=== PATIENT | female | born 1970 | race Caucasian/White ===

== ENCOUNTER 2019-06-04 08:26 | Outpatient (CLI) | payer OTHER, SELFPAY | END 2019-06-04 08:27 | disposition home or self-care (01) | LOC: ANHAUDIO 08:30 | DX: H91.90 Unspecified hearing loss, unspecified ear (principal); H81.10 Benign paroxysmal vertigo, unspecified ear | CPT/HCPCS: 92537; 92540; 92546; 92557; 92567 ==

== ENCOUNTER 2019-07-10 16:30 | Outpatient (RCR) | payer OTHER, SELFPAY ==
--- NOTE | 2019-06-10 16:53 | PTOPEVAL ---
PHYSICAL THERAPY EVALUATION AND PLAN OF CARE 06-10-2019 The PT evaluation was completed for the diagnosis of BPPV. The plan of treatment is for 2x/week for 4 weeks. Thank you for referring Lizette to [facility]. Please review, sign, date and return this plan of care [facility]. I agree with and certify that the following plan of care is medically necessary. Referring Physician Date Attending Provider: Dr. Hillman *PT Outpatient Evaluation Start: 06/10/19 15:47 Freq: Status: Active Protocol: Document 06/10/19 15:47 DANIELLE (Rec: 06/10/19 16:53 DANIELLE [email or web address]) Therapy Assessment Status Assessment Status Assessment Status Evaluation Outpatient Past Medical History Neurological History Hx Neurological Disorders No Significant History Cardiovascular History Hx Hypertension Yes: meds Respiratory History Hx Asthma Yes: weather related/inhaler use Gastrointestinal History Hx Gastrointestinal Disorders No Significant History Genitourinary History Hx Genitourinary Disorders No Significant History Musculoskeletal History Hx Back Pain Yes Hx Other Musculoskeletal Disorders Yes: L hip cyst due to fall, non surgical; Hematological History Hx Hematological Disorders No Significant History Endocrine History Hx Hypothyroidism Yes: surgical removal- take meds HEENT History Hx Other HEENT Disorders Yes: have had vertigo for the past 2 weeks;saw ENT Integumentary History Hx Skin Disorders No Significant History Other History Hx MRSA Yes: R leg 2005; surgical Hx Other Medical Conditions Yes: obesity Evaluation Information Problem Diagnosis BPPV Onset May 11, 2019 to ER Subjective Information working on school bus, sneezed Query Text:As Reported By Patient/ hard, then leaned forward to Family unbuckle w/c, L ear popped and vomiting; when in ER, some word finding problems; not able to walk off bus due to so dizzy Prior Level of Function Activity Level (Last 3 Months) Occupation elementary school science teacher; 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
--- NOTE | 2019-07-10 15:43 | PTOPEVAL ---
PHYSICAL THERAPY DISCHARGE 07-10-2019 Lizette has received 9 Physical Therapy sessions, from June 10 to today, for the diagnosis of BPPV. Her treatment included eye tracking exercises, therapeutic activities for vestibular system, Eply maneuver to the R and education for home exercises and safety. Compared to the initial evaluation, she has improved with the Dizziness Handicap Index score from 60 to 40; her s/s are less severe, and she continues to have sinus pressure and headaches. The recovery time is less with her s/s. Her activities and movements are guarded and she knows how to stabilize her s/s. The goals were partially achieved, education has been completed. She is having back surgery next week, therefore she will be discharged at this time. Thank you for referring Mrs. Bee to [facility]. Please review, sign, date and return this discharge [facility]. I agree with and certify that the following plan of care is medically necessary. Referring Physician Date Attending Provider: Dr. Elliott Hillman Document 07/10/19 15:10 DANIELLE (Rec: 07/10/19 15:40 DANIELLE [email or web address]) Subjective Information Lizette reports: pressure behind Query Text:As Reported By Patient/ eyes and ears--sinus pressure Family ; whole face feels it; no dizziness or head spinning at this time; when woke up this morning- was really dizzy for 20 minutes; self assessment Dizziness Handicap Index 40. To have back surgery next week ; Pain Assessment Timing of Pain Assessment Timing of Pain Assessment Assessment Pain Scale Pain Scale Used Numeric (1 - 10) Self Report Pain Assessment Bilateral Neck Reported Pain Level 0 Pain Frequency Chronic Other Pain Description headaches last 30-45 min, last until sit down, calm down and rest Current Pain Intensity 0 Lowest Pain Intensity 0 Greatest Pain Intensity 6 Additional Pain Comments no pain in neck today; have headaches when move too fast or do too much Pain Score Pain Score 0: Self Report PT Clinical Summary Clinical Summary Protocol: PTEVCODE Clinical Summary Vestibular testing/activity: standing head turn to R and L: little off and pressure in sinus ; pick something up off floor:holds head upright to avoid s/s, if look to ground, increase s/s; stand and turn 360' to R clear 3 sec/ to L clear 5 seconds; walk 50'
== END 2019-07-13 09:49 | disposition home or self-care (01) ==
LOC: ANHPT 16:30
DX: H81.11 Benign paroxysmal vertigo, right ear (principal)
CPT/HCPCS: 97110; 97161

== ENCOUNTER 2019-07-14 13:30 | Outpatient (RCR) | payer OTHER, SELFPAY ==
--- NOTE | 2019-05-21 11:52 | PTOPEVAL ---
Thank you for referring this patient to [facility]. Please review, sign, date and return this plan of care [facility]. I agree with and certify that the following plan of care is medically necessary. Referring Physician Date Admitting Provider: Attending Provider: PHYSICIAN NOT ON STAFF Referring Provider: *PT Outpatient Evaluation Start: 05/21/19 09:11 Freq: Status: Active Protocol: Document 05/21/19 09:05 DANIELLE (Rec: 05/21/19 10:05 DANIELLE [email or web address]) Therapy Assessment Status Assessment Status Assessment Status Evaluation Outpatient Past Medical History Neurological History Hx Neurological Disorders No Significant History Cardiovascular History Hx Hypertension Yes: meds Respiratory History Hx Asthma Yes: weather related/inhaler use Gastrointestinal History Hx Gastrointestinal Disorders No Significant History Genitourinary History Hx Genitourinary Disorders No Significant History Musculoskeletal History Hx Back Pain Yes Hx Other Musculoskeletal Disorders Yes: L hip cyst due to fall, non surgical; Hematological History Hx Hematological Disorders No Significant History Endocrine History Hx Hypothyroidism Yes: surgical removal- take meds HEENT History Hx Other HEENT Disorders Yes: have had vertigo for the past 2 weeks;saw ENT Integumentary History Hx Skin Disorders No Significant History Other History Hx MRSA Yes: R leg 2005; surgical Hx Other Medical Conditions Yes: obesity Evaluation Information Problem Diagnosis back pain Onset 4 years Subjective Information chronic low back pain; saw Dr Query Text:As Reported By Patient/ Hernandez- surgery is being planned Family for cage in low back and disc removal ; have to have therapy before surgery for insurance; have had injections in back and hips; no PT for back; Diagnostic Tests X-Rays For This Problem Yes MRI For This Problem Yes Previous Treatments Previous Treatments For This Problem no previous PT treatment for back pain Prior Level of Function Activity Level (Last 3 Months) Occupation business process coordinator; 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
--- NOTE | 2019-05-21 11:54 | PTOPEVAL ---
PHYSICAL THERAPY EVALUATION AND PLAN OF CARE 05-21-2019 The PT evaluation was completed for the diagnosis of low back pain. The plan of treatment is scheduled for 2x/week for 4 weeks. The plan includes aquatic therapy, for the buoyancy effects of the water, to ease her mobility and strengthening. Thank you for referring Mrs. Bee to [facility]. Please review, sign, date and return this plan of care [facility]. I agree with and certify that the following plan of care is medically necessary. Referring Physician Date Attending Provider: Dr. Hernandez *PT Outpatient Evaluation Start: 05/21/19 09:11 Document 05/21/19 09:05 DANIELLE (Rec: 05/21/19 10:05 DANIELLE [email or web address]) Outpatient Past Medical History Neurological History Hx Neurological Disorders No Significant History Cardiovascular History Hx Hypertension Yes: meds Respiratory History Hx Asthma Yes: weather related/inhaler use Gastrointestinal History Hx Gastrointestinal Disorders No Significant History Genitourinary History Hx Genitourinary Disorders No Significant History Musculoskeletal History Hx Back Pain Yes Hx Other Musculoskeletal Disorders Yes: L hip cyst due to fall, non surgical; Hematological History Hx Hematological Disorders No Significant History Endocrine History Hx Hypothyroidism Yes: surgical removal- take meds HEENT History Hx Other HEENT Disorders Yes: have had vertigo for the past 2 weeks;saw ENT Integumentary History Hx Skin Disorders No Significant History Other History Hx MRSA Yes: R leg 2006; surgical Hx Other Medical Conditions Yes: obesity Evaluation Information Problem Diagnosis back pain Onset 4 years Subjective Information chronic low back pain; saw Query Text:As Reported By Patient/ David- surgery is being planned Family for cage in low back and disc removal ; have to have therapy before surgery for insurance; have had injections in back and hips; no PT for back; Diagnostic Tests X-Rays For This Problem Yes MRI For This Problem Yes Previous Treatments Previous Treatments For This Problem no previous PT treatment for back pain Prior Level of Function Activity Level (Last 3 Months) Occupation channel business manager; 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
--- NOTE | 2019-06-10 08:50 | PCPTNOTE ---
Treatment note 06/01/2019 S: Pt reports that she is nervous about the water therapy O: Aquatic therapy; - Marching, abduction, extension, squats, heel raises, rotation with board, push/pull with board, walking forward,backwards, and lateral 5 minutes each direction. Activities performed in chest deep water. rest breaks given as needed. A: Pt tolerated treatment well with some fatigue noted P: continue with POC
--- NOTE | 2019-07-01 11:37 | PTOPEVAL ---
Addendum entered by Batsheva Cardoso, PT 07/01/19 11:47: Self assessment with the Oswestry Low Back Pain questionnaire is 70% limitation; at evaluation it was 62% limitation. Original Note: PHYSICAL THERAPY RE-EVALUATION AND UPDATED PLAN OF CARE 07-01-2019 Mrs. Bee has received 9 Physical Therapy sessions from May 21 to today, for the diagnosis of low back pain. Compared to the initial evaluation: pain rating is slightly worse; reported standing, walking and sleeping tolerances are less; flexibility is about the same and strength has improved and the pool helps to decrease her pain. In preparation for surgery, she reports she is decreasing her pain meds, and reports she is to have surgery in 2 weeks. Continue PT 2x/wk for 2 weeks, for pain control/ management and increase strength, prior to surgery. Thank you for referring Lizette to [facility]. Please review, sign, date and return this plan of care [facility]. I agree with and certify that the following plan of care is medically necessary. Referring Physician Date Attending Provider: Dr. Mckayla Hernandez *PT Outpatient Re-Evaluation Document 07/01/19 11:07 DANIELLE (Rec: 07/01/19 11:36 DANIELLE [email or web address]) Subjective Information Lizette reports: surgery is Query Text:As Reported By Patient/ planned for July 14; pool Family therapy helps decrease the pain; electrical stim and heat also helped pain; have been doing stretching exercises; said to continue PT until surgery; continues to have issues with dizziness/vertigo; Pain Assessment Timing of Pain Assessment Timing of Pain Assessment Assessment Pain Scale Pain Scale Used Numeric (1 - 10) Self Report Pain Assessment Bilateral Back Reported Pain Level 8 Radicular Pain Location R and L low back, buttocks, post leg to toes- intermittent due to position Pain Frequency Chronic,Intermittent Other Pain Description hit with sledgehammer,hurts, constant pain Current Pain Intensity 8 Lowest Pain Intensity 8 Greatest Pain Intensity 10 Pain Aggravating Factors Exercise/Activity Pain Behaviors Anxious,Grimacing,Guarding Pain Relief Interventions Used By Inactivity/Rest,Medication, Patient Position Change Other Alleviating Interventions stopped taking naproxen; took 1 pain pill this AM- taking less prep for sheba Additional Pain Comments report sleep 1 hr/time;stand abad 8-10 min;walking 1-2 blocks; Pain Score Pain Score 8: Self Report Cervical and Lumbar ROM Lumbar ROM Lumbar Comments
--- NOTE | 2019-07-17 15:17 | PCPTNOTE ---
PHYSICAL THERAPY DISCHARGE 07-17-2019 Attending Provider: Dr. Mckayla Hernandez Patient:Lizette Bee Date of :1970 Mrs. Bee has received 11 Physical Therapy sessions, from May 21 to July 14, for the diagnosis of back pain. She was scheduled to have back surgery on July 15, therefore will be discharged from therapy at this time. The goals were not achieved. Thank you for referring Lizette to [facility]. Please review, sign, date and return this discharge summary [facility]. I have been updated about the patient's current status and I agree with discharge from the above service at this time. Referring Physician Date
== END 2019-07-20 08:30 | disposition home or self-care (01) ==
LOC: ANHPT 13:30
DX: M54.5 Low back pain (principal)
CPT/HCPCS: 97012; 97014; 97110; 97113; 97161; G0283

== ENCOUNTER 2019-11-25 12:30 | Outpatient (RCR) | payer OTHER, SELFPAY ==
--- NOTE | 2019-08-31 09:14 | PTOPEVAL ---
PHYSICAL THERAPY EVALUATION AND PLAN OF CARE 08-31-2019 The PT evaluation was performed today for the diagnosis of low back pain, s/p lumbar fusion. Her plan of treatment is 2x/week for 5 weeks. The plan of care includes aquatic therapy, for the buoyancy effects of the water, to ease motion and ability to perform exercises with less pressure on her spine. Thank you for referring Lizette Bee to [facility]. Please review, sign, date and return this plan of care [facility]. I agree with and certify that the following plan of care is medically necessary. Referring Physician Date Referring Provider: Dr. Ramy Parry *PT Outpatient Evaluation Start: 08/31/19 08:02 Assessment Status Assessment Status Evaluation Outpatient Past Medical History Past Medical History Source of Past Medical History Patient Neurological History Hx Neurological Disorders No Significant History Cardiovascular History Hx Hypertension Yes: meds Respiratory History Hx Asthma Yes: weather related/inhaler use Gastrointestinal History Hx Gastrointestinal Disorders No Significant History Genitourinary History Hx Genitourinary Disorders No Significant History Musculoskeletal History Hx Arthritis Yes: B knee pain, get injections about every 3 wk- not had lately Hx Back Pain Yes Hx Orthopedic Surgery Yes: this back surgery Hx Other Musculoskeletal Disorders Yes: L hip cyst due to fall, non surgical;obese;LE edema Hematological History Hx Hematological Disorders No Significant History Endocrine History Hx Hypothyroidism Yes: surgical removal- take meds HEENT History Hx Other HEENT Disorders Yes: vertigo-have had therapy treatment in past Integumentary History Hx Skin Disorders No Significant History Other History Hx MRSA Yes: R leg 2005; surgical/MRSA Hx Other Medical Conditions Yes: obesity Evaluation Information Problem Diagnosis back pain, s/p L4-5 fusion Onset 07-15-2019 Subjective Information since surgery, no lifting over Query Text:As Reported By Patient/ 5#, home and resting; Family Previous Treatments Previous Treatments For This Problem had PT prior to back surgery Prior Level of Function Activity Level (Last 3 Months) Occupation business and financial counsel, 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
--- NOTE | 2019-10-02 13:18 | PTOPEVAL ---
PHYSICAL THERAPY RE-EVALUATION AND UPDATED PLAN OF CARE 10-02-2019 Lizette has received 9 PT sessions, from August 31 to today, s/p lumbar surgery. Compared to the initial evaluation: her pain rating is worse; now has radicular pain into both legs; reported sitting tolerance is improved; strength of B hips and trunk have improved; walking tolerance with the 6 minute walking test is less, she had issues with breathing and more L knee pain; Self assessment Oswestry score improved from 74% to 58% limitation in functional activity level; flexibility of R hamstring, R hip ER and flexion have improved. Lizette continues to work hard during aquatic and land sessions. Continue PT 2x/week for 4 weeks, for continued land and aquatic exercises to increase strength and activity level. With progression of home exercises. Thank you for referring Lizette Bee to [facility]. Please review, sign, date and return this plan of care [facility]. I agree with and certify that the following plan of care is medically necessary. Referring Physician Date Referring Provider: Dr. Ramy Parry *PT Outpatient Re-Evaluation Document 10/02/19 12:30 DANIELLE (Rec: 10/02/19 13:17 DANIELLE [id number]) Subjective Information Lizette reports: pain in back is Query Text:As Reported By Patient/ worse, going down into both Family legs to toes; activity tolerance with home things 10- 15 min then have to rest; feel like the water exercises are the best for her; is not doing any lifting or much activity; Oswestry self assessment rating of 58% limitation; wants to have more therapy to get better--walk and stand longer; Pain Assessment Timing of Pain Assessment Timing of Pain Assessment Assessment Pain Scale Pain Scale Used Numeric (1 - 10) Self Report Pain Assessment Left Knee(s) Reported Pain Level 10 Other Pain Description knee hurts with every step- bones grinding together Bilateral Back Reported Pain Level 5 Pain Description Pressure,Tingling Radicular Pain Location into both legs- to B knees constant; lateral to toes- intermittent Pain Frequency Chronic Other Pain Description stated pain 5-12/10; Lowest Pain Intensity 5 Greatest Pain Intensity 10 Pain Aggravating Factors Sitting Other Pain Aggravating Factors sit tolerance 20 min; lie on R or L side; Pain Relief Interventions Used By Position Change Patient Other Alleviating Interventions water exercises; meds-no
--- NOTE | 2019-10-14 13:34 | PTOPEVAL ---
PHYSICAL THERAPY EVALUATION AND PLAN OF CARE 10-14-2019 The PT evaluation was completed for vestibular rehab. Her plan of treatment is scheduled for 1x/week for 4 weeks. Thank you for referring Lizette Bee to [facility]. Please review, sign, date and return this plan of care [facility]. I agree with and certify that the following plan of care is medically necessary. Referring Physician Date Referring Provider: Dr. Bimal Blount *PT Outpatient Evaluation Start: 08/31/19 08:02 Freq: Status: Active Protocol: Document 10/14/19 12:34 DANIELLE (Rec: 10/14/19 13:34 DANIELLE [id number]) Therapy Assessment Status Assessment Status Assessment Status Evaluation Outpatient Past Medical History Past Medical History Source of Past Medical History Patient Neurological History Hx Neurological Disorders No Significant History Cardiovascular History Hx Hypertension Yes: meds Respiratory History Hx Asthma Yes: weather related/inhaler use Gastrointestinal History Hx Gastrointestinal Disorders No Significant History Genitourinary History Hx Genitourinary Disorders No Significant History Musculoskeletal History Hx Arthritis Yes: B knee pain, get injections about every 3 wk- not had lately Hx Back Pain Yes Hx Orthopedic Surgery Yes: this back surgery Hx Other Musculoskeletal Disorders Yes: L hip cyst due to fall, non surgical;obese;LE edema Hematological History Hx Hematological Disorders No Significant History Endocrine History Hx Hypothyroidism Yes: surgical removal- take meds HEENT History Hx Other HEENT Disorders Yes: vertigo-have had therapy treatment in past Integumentary History Hx Skin Disorders No Significant History Other History Hx MRSA Yes: R leg 2005; surgical/MRSA Hx Other Medical Conditions Yes: obesity Evaluation Information Problem Diagnosis vestibular therapy Onset May 11, 2019 Additional Evaluation Detail previous PT here for vestibular therapy, May to June 2019; then stopped therapy due to having back surgery; is currently having therapy s/ p back surgery; Prior Level of Function Medications Home Meds (Include: OTC, RX, Vitamins, antibiotic daily for R LE Herbals, Dose, Route,and Frequency) infection/chronic; naproxen 1x Query Text:Home Med Entries Will No /day; losartin- BP; Longer Recall From Past Visits. Home levothyroxine-thyroid; Meds Must Be Re-enter
--- NOTE | 2019-10-28 14:25 | PTOPEVAL ---
PHYSICAL THERAPY RE-EVALUATION AND UPDATED PLAN OF CARE 10-28-2019 Lizette has received a total of 19 PT sessions, for the diagnosis of s/p lumbar surgery and vestibular therapy, from August 30 to today for the back care and vestibular treatment since October 13. Since the last back treatment reevaluation on 10-02-2019: she has improved with: pain rating at low and high ratings; Oswestry functional self assessment score by 14%; radicular pain to R and L mid-posterior thigh at worst; reported activity level at home; reported decreased pain med use; functional strength with supine L SLR, bridge, prone hip extension R & L and side lying L hip abduction; more upright trunk posture in standing; 6 minute walk test distance by 300' and no rest breaks; flexibility of L hamstring length with SLR. Lizette remains motivated--doing her home exercises and pushing herself to do as much as she is able. Continue PT 2x/week for 3 weeks, to progress strength and advance home exercises. Thank you for referring Lizette Bee to [facility]. Please review, sign, date and return this plan of care [facility]. I agree with and certify that the following plan of care is medically necessary. Referring Physician Date Referring Provider: Dr. Ramy Parry Document 10/28/19 13:09 DANIELLE (Rec: 10/28/19 14:12 DANIELLE [id number]) Assessment Status Re-evaluation Subjective Information Lizette states: doing better, Query Text:As Reported By Patient/ pain is less, moving and doing Family more activity--mowed yard, kitchen chores; taking less meds, sleeping better; continues to work on losing weight, now at 314#; wants to continue PT treatment; Pain Assessment Timing of Pain Assessment Timing of Pain Assessment Assessment Pain Scale Pain Scale Used Numeric (1 - 10) Self Report Pain Assessment Bilateral Neck Reported Pain Level 8 Other Pain Description sinus issues Left Knee(s) Reported Pain Level 8 Bilateral Back Reported Pain Level 4 Radicular Pain Location no LE pain past few days,w/ walking radicular into lower lumbar & post thigh Pain Frequency Chronic Other Pain Description constant at R and L sacral; Lowest Pain Intensity 4 Greatest Pain Intensity 7 Pain Aggravating Factors Walking Other Pain Aggravating Factors report tolerance: sit 10-15 min; home tasks 10-15 min Other Alleviating Interventions applied leukotape strip over R /L sacrum- educated pt on monitor skin Additional Pain Comments slept 6 hr straight last night ;take naproxen 1x/day;no longer taking morphi Pain Score Pain Score 8,8,4: Self Report Cervical and Lumbar ROM Lumbar ROM Lumbar Comments
--- NOTE | 2019-11-09 14:02 | PCPTNOTE ---
pt called and canceled today's reeval of vestibular system due to not feeling well.
--- NOTE | 2019-11-18 14:20 | PTOPEVAL ---
PHYSICAL THERAPY VESTIBULAR DISCHARGE 11-18-2019 The reassessment for her vestibular system was performed today and Lizette will be discharged from vestibular treatments. The goals were partially achieved. She continues to have some dizziness and s/s with quick head motions and quick movements, but she has a good understanding of how to control and manage the symptoms. Lizette understands with her medical history and multiple issues with neck pain, headaches, sinus issues, allergies and past vertigo, that she is at risk for continued problems with dizziness. She has home exercises for canal clearing and education to manage--move slowly, hold position. Discharge from vestibular PT at this time. PT treatment will continue with orders from Dr. Ramy Parry for her back. Thank you for referring Lizette Bee to [facility]. Please review, sign, date and return this discharge SANDRA. I agree with and certify that the following plan of care is medically necessary. Referring Physician Date Attending Provider: Dr. Bimal Blount *PT Outpatient Re-Evaluation Document 11/18/19 13:30 DANIELLE (Rec: 11/18/19 14:20 DANIELLE [id number]) Subjective Information Lizette reports: have not been Query Text:As Reported By Patient/ dizzy, unless move really fast Family - moving head any way fast; allergies and sinus continue to have problems; have been working on moving slower, focusing eyes, and being careful; self assessment with Dizziness Handicap Index is 12/100; Pain Assessment Timing of Pain Assessment Timing of Pain Assessment Assessment Self Report Self Report Pain Level 0 Pain Score Pain Score 0: Self Report Additional Pain Score Comments no headaches or neck pain for about 1 week Cervical and Lumbar ROM Cervical ROM Cervical ROM Comments standing cervical rotation R/L and flexion/extension at slow pace, no increase dizziness - pick item up off floor- no s /s -kneeling and reaching under mat, simulated work task of buckling w/c, without any s/s; education to stretch back and stand up to let head settle ; also to rotate the other direction to stretch back; -walk with head turn R/L and up/down; with slow pace, can perform without s/s; with initial turn to R, dizziness; -supine roll R/L without s/s;
--- NOTE | 2019-11-25 17:04 | PTOPEVAL ---
PHYSICAL THERAPY RE-EVALUATION 11-25-2019 Mrs. Bee has received a total of 25 PT sessions, from August 30 to today, for the diagnosis of s/p lumbar surgery and vestibular issues. The vestibular treatment has been discharged. Compared to the last reevaluation for her back on 10-28-2019: her pain ratings are higher for her back, with less radicular pain; L knee pain rating is high; sitting tolerance is slightly more with her reports; reported sleeping is less; self assessment with the Oswestry is 4% worse; 6 minute walk test is less due to more pain today and problems breathing with a mask; trunk and hip strength has increased; supine hip flexion, IR and ER and hamstring on R and L is no longer causing pain; hamstring length have increased slightly on R and L; she is independent with her home exercises and has access to a pool for exercises. Lizette has higher pain rating with today's reevaluation-- she has decreased her pain meds and increased her activity level with more pain, but does not have the radicular pain any longer. The L knee pain is limiting her standing and walking. She also reports having horrible hot flashes and uncomfortable with sleeping. Discussed with her the job she has as a school bus driver/custodian--sitting, bending, and twisting to buckle wheelchairs into the bus floor. PLAN: HOLD PT until she follow up with the Dr. She is to continue to do exercises on her own--land and water. At her follow up appointment, she will discuss with you how she is doing and determine if any additional PT is indicated. IF additional therapy is indicated, she will need a new script. Thank you for referring Lizette Bee to [facility]. Please review, sign, date and return this plan of care [facility]. I agree with and certify that the following plan of care is medically necessary. 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 a row and pain increased--just sat and sorted canned food; had to take pain med prescription due to more pain; is doing exercises at home; sitting tolerance 15 min; with home tasks- light cooking, is not going to stores or shopping due to not able to wear mask; Pain Assessment Timing of Pain Assessment Timing of Pain Assessment Assessment Pain Scale Pain Scale Used Numeric (1 - 10) Self Report Pain Assessment Bilateral Neck Reported Pain Level 0 Left Knee(s) Reported Pain Level 10 Pain Frequency Chronic Additional Pain Comments reports knee pain 20/10; to see knee dr for injection 12-11 Bilateral Back Reported Pain Level
--- NOTE | 2019-12-25 09:34 | PCPTNOTE ---
PHYSICAL THERAPY DISCHARGE 12-25-2019 Attending Provider: Dr. Ramy Bain Patient:Lizette Bee Date of :1970 Lizette has not returned for any further orders for PT treatments since the reevaluation on 11/25/2019, therefore she will be discharged at this time. Refer to that report for her status at the last PT session. Thank you for referring Mrs. Bee to [facility]. Please review, sign, date and return this discharge summary SANDRA. I have been updated about the patient's current status and I agree with discharge from the above service at this time. Referring Physician Date
== END 2019-11-29 23:59 | disposition home or self-care (01) ==
LOC: ANHPT 12:30
DX: M54.41 Lumbago with sciatica, right side (principal); M54.42 Lumbago with sciatica, left side; R25.2 Cramp and spasm
CPT/HCPCS: 97014; 97022; 97110; 97113; 97140; 97161; G0283

== ENCOUNTER 2019-12-29 12:54 | Outpatient (CLI) | payer OTHER, SELFPAY ==
--- NOTE | ~2019-12-29 | XR_ITS ---
EXAMINATION: XR lumbar spine 2-3V DATE: 12/29/2019 13:09 INDICATION: Acute bilateral low back pain with sciatica. TECHNIQUE: 3 views of lumbar spine were obtained. COMPARISON: None. FINDINGS: There is 5 degrees levocurvature of lumbar spine. There are changes of anterior and posteri or fusion procedures at L4-L5 with interbody devices and pedicle screws. Vertebral body heights are n ormal. There is mildly decreased disc height at T12-L1 and L1-L2. There is multilevel mild facet join t osteoarthritis. Surgical clips in the right upper quadrant are likely from cholecystectomy. IMPRESSION: 1. Mild lumbar spondylosis. 2. Anterior and posterior fusion procedures at L4-L5. Reviewed, dictated and finalized at location A.
== END 2019-12-29 12:55 | disposition home or self-care (01) ==
DX: M54.41 Lumbago with sciatica, right side (principal); M54.42 Lumbago with sciatica, left side; M47.896 Other spondylosis, lumbar region; Z98.1 Arthrodesis status
CPT/HCPCS: 72100

== ENCOUNTER 2020-06-20 13:15 | Outpatient (RCR) | payer OTHER, SELFPAY ==
--- NOTE | 2020-03-28 15:50 | PTOPEVAL ---
PHYSICAL THERAPY EVALUATION AND PLAN OF CARE 03-28-2020 Thank you for referring Lizette Bee to [facility]Note 3[facility]? She is scheduled to be seen for therapy, on land and aquatic 2 /week for 5 weeks. Please review, sign, date and return this plan of care SANDRA. I agree with and certify that the following plan of care is medically necessary. Referring Physician Date Attending Provider: ASAD Hinds *PT Outpatient Evaluation Start: 03/28/20 14:40 Document 03/28/20 14:35 DANIELLE (Rec: 03/28/20 15:50 DANIELLE [id number]) Outpatient Past Medical History Past Medical History Source of Past Medical History Patient,Recalled from Previous Visit, Confirmed with Patient /Family Neurological History Hx Neurological Disorders No Significant History Cardiovascular History Hx Hypertension Yes: meds Respiratory History Hx Asthma Yes: weather related/inhaler use Gastrointestinal History Hx Gastrointestinal Disorders No Significant History Genitourinary History Hx Genitourinary Disorders No Significant History Musculoskeletal History Hx Arthritis Yes: B knee pain, get injections Hx Back Pain Yes Hx Orthopedic Surgery Yes: lumbar fusion L4-5 July 15, 2019 Hx Other Musculoskeletal Disorders Yes: L hip cyst due to fall, non surgical;obese;LE edema Hematological History Hx Hematological Disorders No Significant History Endocrine History Hx Hypothyroidism Yes: surgical removal- take meds HEENT History Hx Other HEENT Disorders Yes: vertigo-have had therapy treatment in past Integumentary History Hx Skin Disorders No Significant History Pain History Has Past Pain Affected Your Daily Life Yes History of Long-Term Prescription Pain Yes Medication Use (Opiates) Other History Hx MRSA Yes: R leg 2006; surgical/MRSA Hx Other Medical Conditions Yes: obesity Evaluation Information Problem Diagnosis s/p lumbar fusion Onset June 2019 Subjective Information Lizette reports: back pain since Query Text:As Reported By Patient/ surgery, was better after Family finished PT, but always hurt; Previous Treatments Previous Treatments For This Problem PT here August to October 2019; Prior Level of Function Activity Level (Last 3 Months) Occupation school guard Activity of Daily Living Ability Independent Indoor/Home Mobility Independent Community Mobility Independent Stairs Ability Independent Functional Cognition (Planning, Shopping Independent
--- NOTE | 2020-04-18 11:10 | PCPTNOTE ---
Patient called & cancelled scheduled appointment this date no reason given.
--- NOTE | 2020-05-02 16:23 | PTOPEVAL ---
PHYSICAL THERAPY RE-EVALUATION AND UPDATED PLAN OF CARE 05-02-2020 Refer to the clinical summary below for comparison to the initial evaluation. Continue PT treatment 2x/week for 5 weeks, on land and aquatic sessions. Thank you for referring Lizette Bee to [facility].? Please review, sign, date and return this plan of care SANDRA. I agree with and certify that the following updated plan of care is medically necessary. Referring Physician Date Attending Provider: Natali Cevallos, DUTY OFFICER-CAUSTIC PLANT WORKER Document 05/02/20 15:30 DANIELLE (Rec: 05/02/20 16:23 DANIELLE [id number]) Assessment Status Re-evaluation Subjective Information Lizette reports: back is better, Query Text:As Reported By Patient/ have been off work for 2 weeks Family , back is better since not working ; have been doing her exercises, doing few more home things and trying to improve; Oswestry Low Back self assessment 52%, functional limitation Pain Assessment Timing of Pain Assessment Timing of Pain Assessment Assessment Pain Scale Pain Scale Used Numeric (1 - 10) Self Report Pain Assessment Bilateral Back Reported Pain Level 6 Pain Description Aching,Dull,Sharp,Stabbing, Tightness,Tingling Pain Radiation Right Leg Radicular Pain Location quick sharp into R post thigh to knee- few times in past week Pain Frequency Continuous Lowest Pain Intensity 4 Greatest Pain Intensity 10 Pain Aggravating Factors Sitting,Walking,Weight Bearing /Standing Other Pain Aggravating Factors report tolerances: sit 20 min; walk 15 min;sleep 2 hours/time Pain Score Pain Score 6: Self Report Additional Pain Score Comments sleep is disrupted due to new CPAP, back pain and issues with not being able to sleep; Interventions Used Interventions Used By Clinicians Education,Exercise Pain Relief Interventions Used By Exercise,Inactivity/Rest, Patient Medication,Position Change, TENS Other Alleviating Interventions taking vicoden and PRN morphine~ 2x/wk; Lower Extremity Range of Motion General Lower Extremity Range of Motion Gross Lower Extremity Range of Motion standing trunk AROM: flexion- Comments hands to mid colunga-no increase pain; extension 10'- increase pain buttocks and sacrum, side bend R- hand above knee
--- NOTE | 2020-05-17 09:26 | PCPTNOTE ---
Per paralegal legal secretary Pt's called as Pt and canceled Pt's appointment due to injuring her back over the weekend. Will continue per POC.
--- NOTE | 2020-06-06 10:51 | PTOPEVAL ---
PHYSICAL THERAPY RE-EVALUATION AND UPDATED PLAN OF CARE 06-06-2020 Refer to the clinical summary below, for comparison for today's reevaluation to the last reeval. Lizette has increased pain and decreased activity tolerance and mobility/ROM and strength. The goals were not achieved. Continue PT 2x/week for 6 weeks, for land and aquatic exercises, for the buoyancy effects of the water to ease movement. Thank you for referring Lizette Bee to [facility].? Please review, sign, date and return this updated plan of care [facility]. I agree with and certify that the following plan of care is medically necessary. Referring Physician Date Attending Provider: Natali Cevallos, SENIOR MEDIA PLANNER-STATIONARY FIREMAN document 06/06/20 10:01 DANIELLE (Rec: 06/06/20 10:50 ADNIELLE [id number]) Assessment Status Re-evaluation Subjective Information Lizette reports: saw dr last week Query Text:As Reported By Patient/ , given release from work for Family 6 weeks; had have xrays and PET scan; on 06-[address] scan and MRI of entire spine; have order from to continue therapy; pain is worse, not sure why; is changing meds, but having problems with insurance getting approval for it; have order for back brace; was hurting so bad over the weekend, was in bed and cried, not able to see her grand baby who was visiting from out of town; Pain Assessment Timing of Pain Assessment Timing of Pain Assessment Assessment Pain Scale Pain Scale Used Numeric (1 - 10) Self Report Pain Assessment Bilateral Back Reported Pain Level 9 Pain Radiation Left Leg,Right Leg Radicular Pain Location shocking, tingling feels like tazer hitting my back- intermittent strikes Pain Frequency Chronic,Continuous Other Pain Description whole spine, from neck- shoulder blades to below buttock; Lowest Pain Intensity 8 Greatest Pain Intensity 10 Pain Aggravating Factors Exercise/Activity,Sitting, Walking,Weight Bearing/ Standing Other Pain Aggravating Factors everything;reported tolerances :sit10 min/walk/stand 10 min; sleep 1 hr Pain Behaviors Anxious,Grimacing,Guarding Additional Pain Comments pain into both posterior - lateral thighs at worst,
--- NOTE | 2020-06-16 13:51 | PCPTNOTE ---
Patient called & cancelled scheduled appointment this date; no reason given.
--- NOTE | 2020-06-22 11:30 | PCPTNOTE ---
This treatment is being continued on visit number [id number]. Please see documentation on both accounts to view progress. Completed interventions, outcomes, and problems have been marked as Inactive to facilitate the copying of the Care plan routine for recurring accounts.
== END 2020-06-22 11:21 | disposition home or self-care (01) ==
LOC: ANHPT 13:15
DX: Z98.1 Arthrodesis status (principal)
CPT/HCPCS: 97014; 97110; 97113; 97140; 97161; G0283

== ENCOUNTER 2020-08-05 12:30 | Outpatient (RCR) | payer OTHER, SELFPAY ==
--- NOTE | 2020-06-22 11:33 | PCPTNOTE ---
This treatment is being continued from previous visit number [id number]. Please see documentation on both accounts to view progress. Completed interventions, outcomes, and problems have been marked as Inactive to facilitate the copying of the Care plan routine for recurring accounts.
--- NOTE | 2020-07-14 14:04 | PTOPEVAL ---
PHYSICAL THERAPY RE-EVALUATION AND UPDATED PLAN OF CARE 07-14-20 Refer to the clinical summary below, for her status compared to the last reevaluation. PT is to continue treatment, 2x/week for 3 weeks. It was discussed with pt that PT treatments will progress and to have her independent with her home exercises and managing her pain. And that her condition is chronic and PT cannot continue indefinitely. Thank you for referring Lizette Bee to [facility].? Please review, sign, date and return this plan of care [facility]. I agree with and certify that the following plan of care is medically necessary. Referring Physician Date Attending Provider: Natali Cevallos, DATA WAREHOUSE MANAGER-CLOSING MACHINE OPERATOR Document 07/14/20 13:20 DANIELLE (Rec: 07/14/20 14:04 DANIELLE [id number]) Assessment Status Re-evaluation Subjective Information Lizette reports: is no longer Query Text:As Reported By Patient/ taking morphine, has decreased Family vicoden and is using marijuania gummies for pain; is working on getting on disability by knee surgeon; is currently not working, last work was end April; want to continue therapy, feel like it is helping and wants to work more on exercises. Pain Assessment Timing of Pain Assessment Timing of Pain Assessment Assessment Pain Scale Pain Scale Used Numeric (1 - 10) Self Report Pain Assessment Lower Back Reported Pain Level 6 Pain Description Tingling Radicular Pain Location intermittent tingling-whole back and B legs- to mid thighs ; Pain Frequency Chronic,Continuous Other Pain Description stabbing lateral hip/buttock L >R; Lowest Pain Intensity 4 Greatest Pain Intensity 8 Pain Aggravating Factors Exercise/Activity Pain Behaviors Grimacing,Guarding Pain Score Pain Score 6: Self Report Additional Pain Score Comments Oswestry self assessment fucntional score: 48% limitation in activity; pt reports tolerances: sitting : 20-30 min/walking 30 min- with shopping, no longer using the motorized cart for shopping; sleeping 3-5 hour at time Interventions Used Interventions Used By Clinicians Exercise Pain Relief Interventions Used By Inactivity/Rest,Medication, Patient Position Change Other Alleviating Interventions feels the brandon villatoro
--- NOTE | 2020-08-05 13:20 | PTOPEVAL ---
PHYSICAL THERAPY DISCHARGE 08-05-20 Refer to the clinical summary below, for her status at today's reassessment, compared to the last reevaluation. The goals were not achieved, except the education was completed. Mrs. Bee does not agree with discharge from PT treatments. She feels she should continue with therapy. And stated she may get her orders and go to therapy at another facility. Additional skilled PT treatment is not justified at this time. She has been educated and is independent with her home exercises and back care/ pain management techniques. She has been instructed to continue with her exercises and activity as tolerated to maintain her mobility and strength, until she has additional back surgery. Thank you for referring Lizette Bee to [facility].? Please review, sign, date and return this Discharge SANDRA. I agree with and certify that the following plan of care is medically necessary. Referring Physician Date Attending Provider: Tatyana Cevallos APRN-TITLE CLOSER Document 08/05/20 12:30 DANIELLE (Rec: 08/05/20 13:20 DANIELLE [id number]) Assessment Status Discharge Subjective Information Lizette reports: going to have Query Text:As Reported By Patient/ MRI of her back, is going to Family have additional surgery on back, not scheduled; to have injections in back to manage pain until can have surgery; have exercise ball at home and exercise band to do exercises at home, but really like the water exercises and cannot do them at home; had more pain today and almost could not make it in here today--took pain meds, marijuana gummies and CBD oil to manage getting here; said I was to continue therapy until I have surgery; may have to go to another facility to get the therapy she wants me to have; Pain Assessment Timing of Pain Assessment Timing of Pain Assessment Assessment Pain Scale Pain Scale Used Numeric (1 - 10) Self Report Pain Assessment Lower Back Reported Pain Level 9 Pain Description Aching,Cramping,Sharp Radicular Pain Location R LE to toes- intermittent shock wave/ L LE to toes- intermittent shock wave Pain Frequency Chronic,Continuous Other Pain Description electric shocks to low back and B lateral hips; Lowest Pain Intensity 7 Greatest Pain Intensity 9 Pain Score Pain Score 9: Self Report Additional Pain Score Comments this AM took teddy
== END 2020-08-08 07:58 | disposition home or self-care (01) ==
LOC: ANHPT 12:30
DX: Z98.1 Arthrodesis status (principal)
CPT/HCPCS: 97014; 97110; 97113; 97140; G0283